=== PATIENT | male | born 2005 | race Caucasian/White ===

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

== ENCOUNTER 2024-01-23 11:27 | Emergency (ER) | payer SELFPAY ==
[2024-01-23 11:28] VITALS: BP 125/85; PULSE 85; RESP 16; TEMP 36.7; O2SAT 100; BMI 23.7
--- NOTE | 2024-01-23 11:30 | HMH.EDGENADL ---
Discharge Plan Disposition Patient Disposition: Home, Self-Care Condition: Good Prescriptions Prescriptions: No Action No Known Home Medications Referrals Follow up/Referrals: Provider,Referral, MD [Referring] - See instructions Activity Restrictions/Add. Instructions Additional Instructions/Restrictions: Please use the drops provided (Gentamicin) 0.3% solution 2 drops six times per day for 5 days. Please monitor for any worsening swelling around your eye, worsening vision, worsening pain, or any other new or worsening symptoms and return to the emergency department if you develop such symptoms. Please do not use your contacts until your eye recovers. Please use Tylenol and ibuprofen as needed for your pain. Clinical Impressions Clinical Impression: Corneal abrasion Qualifiers: Encounter type: initial encounter Laterality: right Qualified Code(s): S05.01XA - Injury of conjunctiva and corneal abrasion without foreign body, right eye, initial encounter Instructions Patient Instructions: DI for Eye Pain Discharge ED Provider: Esteban Alford Adult HPI General Chief complaint: Eye Problems Stated complaint: Left eye red, swollen, irritation Time Seen by Provider: 01/23/24 11:30 History of Present Illness HPI narrative: The patient presents with a chief complaint of eye discomfort that began last night, characterized initially by pain and itching. He noticed redness in the affected eye following these symptoms. The patient was wearing contact lenses at the time the symptoms started, which are not specified as either daily or monthly disposables. He denies any medical conditions, daily medications, allergies to medications, or surgical history. The patient reports no incidents of foreign objects entering the eye or any unusual exposure that could have led to the symptoms. He also experiences light sensitivity in the affected eye, which is a new symptom for him, although he recalls a similar episode in the past. The patient does not report any daily medications or pertinent past medical history that could contribute to the current eye condition. Please note that above description of symptoms, in this electronic medical record under categorization of recalled from ER triage doctor by RN are reflective of an initial nursing assessment, however, is not reflective of my full history and physical exam that was personally taken and clarified. Consequentially, this preceding description of symptoms, which may include the patient's categorized chief complaint in the EMR, do not reflect my personal clinical impression, and the ultimate description of history of present illness and patient stated complaints should be deferred to this section of the note. Unless stated otherwise or congruent with this section of the note, additional signs, symptoms, or incongruence should be interpreted as inaccurate with my clinical impression. Related Data Home Medications Medication Instructions Recorded Confirmed No Known Home Medications 09/02/22 09/02/22 Allergies Allergy/AdvReac Type Severity Reaction Status Date / Time No Known Allergies Allergy Verified 09/02/22 20:51 [facility] Disclaimer: The information contained in this section may have been updated after the patient was seen, as this information can be updated by other users. Social History (Updated 05/06/23 @ 20:11 by Brandie Watts DO) Smoking Status: Never smoker alcohol intake: never current occupational status: employed Travel in the last 8 weeks: None ROS Obtained: Yes other As per HPI Physical Exam General General appearance: alert and in no apparent distress Head Head exam: atraumatic and normocephalic Eye Eye exam: Present normal appearance Neck Neck exam: Present normal inspection Chest Chest inspection: Present normal inspection and symmetric chest wall rise Respiratory Respiratory exam: Present normal lung sounds bilaterally; Absent respiratory distress Cardiovascular Cardiovascular exam: Present regular rate and normal rhythm Abdominal Exam Abdominal exam: Present soft Neurological Exam Neurological exam: Present alert and oriented X3 Psychiatric Psychiatric exam: Present normal affect and normal mood Skin Skin exam: Present warm and dry Other Other exam information: L periorbital edema, erythema, conjunctival injection, IOP WNL bilaterally. On flourescein stain, evidence of corneal abrasion with no kathleen sign, foreign body, dendritic lesions Medical Decision Making Medical Records Medical records reviewed: Yes I reviewed the patient's medical records. Jeanmarie Inquiry Pt receiving controlled substance: No Vital Signs: 01/23/24 11:28 01/23/24 11:59 Temperature 98.1 F 98.1 F Temperature Source Oral Oral Pulse Rate 73 Pulse Rate [Right] 85 Respiratory Rate 16 18 Blood Pressure 130/77 Blood Pressure [Right Arm] 125/85 Blood Pressure Mean [Right Arm] 98 Blood Pressure Source [Right Arm] Automatic Cuff 02 Sat by Pulse Oximetry 100 Oxygen Delivery Method Room Air Room Air Orders (Tests/Meds): ED MEDICATIONS Discontinued Medications Generic Name Dose Route Start Last Admin Trade Name Freq PRN Reason Stop Dose Admin Fluorescein Sodium 1 mg 01/23/24 11:59 01/23/24 12:01 Fluorescein Sodium 1mg Strip OP 01/23/24 12:00 1 mg ONCE ONE Administration Gentamicin Sulfate 0 ml 01/23/24 11:58 Gentamicin 0.3% Opth Misty 5ml OP 01/23/24 11:59 ONCE ONE Tetracaine HCl 0 ml 01/23/24 11:58 01/23/24 12:00 Tetracaine 0.5% Opth Misty 15ml OP 01/23/24 11:59 1 ml ONCE ONE Administration Medical Decision Narrative: Patient with history and exam per above presenting for evaluation of L eye pain Diagnoses considered include conjunctivitis, cellulitis, abrasion, no clinical evidence of FB, and visual acuity WNL bilaterally My clinical impression at this time is most consistent with small corneal abrasion in the setting of contacts use. I discussed my clinical impression with patient and answered all questions. At this time, the evidence for any other entities in the differential is insufficient to warrant any further testing or ED observation. This was explained to the patient. The patient was advised that persistent or worsening symptoms require further evaluation. I confirmed the patient's understanding of this discussion. Critical Care Critical Care Time Critical Care Time: No
[2024-01-23 11:59] VITALS: BP 130/77; PULSE 73; RESP 18; TEMP 36.7; O2SAT 97
[2024-01-23] MEDS: TETRACAINE 0.5% OPTH SOL 15ML OP (12:00)
[2024-01-23] MEDS: FLUORESCEIN SODIUM 1MG STRIP 1 MG OP (12:01)
== END 2024-01-23 12:01 | disposition home or self-care (01) ==
PROVIDERS: Emergency Provider Emergency Medicine; PCP Nurse Practitioner Family
DX: S05.01XA Injury of conjunctiva and corneal abrasion without foreign body, right eye, initial encounter (principal); X58.XXXA Exposure to other specified factors, initial encounter; H53.142 Visual discomfort, left eye
CPT/HCPCS: 99283

== ENCOUNTER 2024-11-23 08:12 | Outpatient (CLI) | payer SELFPAY ==
[2024-11-23 08:31] LABS: Basophils % 0.8 % (0.1-2.0); Eosinophils # 0.1 K/mm3 (0.0-0.4); Eosinophils % 2.9 % (0.1-12.0); Hematocrit 44.9 % (42.0-52.0); Hemoglobin 15.6 g/dL (14.1-18.0); Lymphocytes # 1.4 K/mm3 (0.7-4.5); Lymphocytes % 37.4 % (10-50); Mean Corpuscular HGB Conc 34.7 g/dL (31.8-35.4); Mean Corpuscular Hemoglobin 30.3 pg (27.0-31.2); Mean Corpuscular Volume 87.2 fl (80-94); Mean Platelet Volume 10.1 fl (7.4-10.4); Monocytes # 0.3 K/mm3 (0.1-1.0); Monocytes % 8.4 % (1.7-9.3); Neutrophils # 1.9 K/mm3 (1.8-7.8); Neutrophils % 50.2 % (37.0-80.0); Platelet Count 180 K/mm3 (142-424); Red Blood Count 5.15 M/mm3 (4.60-6.20); Red Cell Distribution Width 12.6 % (11.5-17.5); White Blood Count 3.8 K/mm3 (4.5-13.0)
[2024-11-23 09:16] LABS: Hemoglobin A1C 4.9 % (4.0-6.0)
[2024-11-23 09:29] LABS: Alanine Aminotransferase 23 U/L (12-78); Albumin Level 4.5 g/dl (3.5-5.0); Albumin/Globulin Ratio 1.7 (1.1-1.8); Alkaline Phosphatase 73 U/L (38-126); Anion Gap 11.1 mEq/L (5-15); Aspartate Amino Transferase 22 U/L (17-59); Bilirubin,Total 1.4 mg/dl (0.2-1.3); Blood Urea Nitrogen 19 mg/dl (9-20); Calcium 9.7 mg/dl (8.4-10.2); Carbon Dioxide 29 mmol/L (22.0-30.0); Chloride 103 mmol/L (98-107); Chol/HDL Ratio 3.9 (1-3.5); Cholesterol 149 mg/dl (140-200); Estimated Glomerular Filt Rate 95 ml/min (>60); GFR (African American) 115 ML/MIN (>60); Globulin 2.7 g/dL (1.3-3.2); Glucose 92 mg/dl (74-100); HDL Cholesterol 38 mg/dl (40-60); Potassium 4.1 mmoL/L (3.5-5.1); Sodium 139 mmol/L (136-145); Total Protein,Serum 7.2 g/dl (6.3-8.2); Triglycerides 54 mg/dl (30-150); VLDL Cholesterol 11 mg/dL (0-40)
[2024-11-23 09:41] LABS: Direct LDL Cholesterol 86.63 mg/dL (100-129)
[2024-11-23 09:47] LABS: Free T4 (Free Thyroxine) 1.33 ng/dl (0.78-2.19)
[2024-11-23 10:18] LABS: Vitamin B12 313 pg/mL (239-931)
[2024-11-23 10:37] LABS: Folate 8.05 ng/mL
[2024-11-24 11:09] LABS: Insulin Level Total 6.9 uIU/mL (2.6-24.9)
[2024-11-24 16:19] LABS: Cortisol,AM 7.4 ug/dL (6.2-19.4)
== END 2024-11-23 23:59 | disposition home or self-care (01) ==
LOC: LAB 08:14
PROVIDERS: PCP Nurse Practitioner Family; Visit Provider Nurse Practitioner Family
DX: E16.2 Hypoglycemia, unspecified (principal); R42 Dizziness and giddiness
CPT/HCPCS: 36415; 80053; 80061; 82533; 82607; 82746; 82787; 83036; 83525; 83735; 84439; 84443; 85025

== ENCOUNTER 2025-04-13 16:28 | Emergency (ER) | payer BC, SELFPAY ==
[2025-04-13 16:38] VITALS: BP 144/82; PULSE 98; RESP 20; TEMP 37.6; O2SAT 96; BMI 25.0
[2025-04-13 16:47] LABS: Coronavirus 19, PCR Not Detected (NotDetected); Influenza A, PCR Not Detected (NotDetected); Influenza B, PCR Not Detected (NotDetected)
--- OUTSIDE RECORDS SUMMARY | 2025-04-13 16:54 | XMS_ITS | Encounter Summary ---
Author Organization Healthcare Address [address] [place] [address] Care Team Providers Care Metalizing Machine Operator Name Role Phone Citlaly Caterina Primary Care Provider [phone] Encounter Details Date Type Department Care Team (Late st Contact Info) Description 11/16/2021 Community [facility] [address] [place] [address] Dorothea Fofana MD [address] [place] [address] Syncope and collapse (Primary Dx) Social History Tobacco Use Types Packs/Day Years Used Date Smoking Tobacco: Never Smokeless Tobacco: Never Alcohol Use Standard Drinks/Week Comments Never 0 (1 standard drink = 0.6 oz pure alcohol) Alcoholic Drinks/day: Never Drank Alcohol PHQ-2 Answer Date Recorded Patient Health Questionnaire-2 Score 0 11/15/2021 Sex and Gender Information Value Date Recorded Sex Assigned at Not on file Legal Sex Male 8:24 PM EDT Gender Identity Not on file Sexual Orientation Not on file COVID-19 Exposure Response Date Recorded In the last month, have you been in contact with someone who was confirmed or suspected to have Coronavirus / COVID-19? No / Unsure 11/15/2021 3:16 PM EDT documented as of this encounter Plan of Treatment Not on file documented as of this encounter Visit Diagnoses Diagnosis Syncope and collapse- Primary documented in this encounter Care Teams Metalizing Machine Operator Relationship Specialty Start Date End Date TrinyphillipCaterina [address] [place] [address] PCP - General Family Medicine 10/17/21 documented as of this encounter
--- OUTSIDE RECORDS SUMMARY | 2025-04-13 16:54 | XMS_ITS | Clinical Summary ---
Author Organization [facility] Address [address] [place] [address] Phone Care Team Providers Care Windows Software Engineer Name Role Phone Unavailable Primary Care Provider Unavailabl e Allergies No known active allergies Medications No known medications Social History Tobacco Use Types Packs/Day Years Used Date Smoking Tobacco: Never Smokeless Tobacco: Never Sex and Gender Information Value Date Recorded Sex Assigned at Not on file Legal Sex Male 9:14 PM EST Gender Identity Not on file Sexual Orientation Not on file Obstetrics History Last Filed Vital Signs Vital Sign Reading Time Taken Comments Blood Pressure 136/81 08/11/2021 9:49 PM EST Pulse 98 08/11/2021 9:49 PM EST Temperature 37.5 C (99.5 F) 08/11/2021 9:49 PM EST Respiratory Rate 16 08/11/2021 9:49 PM EST Oxygen Saturation 100% 08/11/2021 9:49 PM EST Inhaled Oxygen Concentration - - Weight 68 kg (150 lb) 08/11/2021 9:49 PM EST Height 190.5 cm (6' 3 ) 08/11/2021 9:49 PM EST Body Mass Index 18.75 08/11/2021 9:49 PM EST Plan of Treatment Health Maintenance Due Date Last Done Comments Annual Wellness Exam 10/26/2007 Meningococcal B Vaccine (2 of 2 - Bexsero SCDM 2-dose series) 11/23/2021 05/25/2021 COVID-19 Vaccine ( season) 2024 Influenza Vaccine (#1) 2025 7, 07/21/2015, 07/21/2015 DTaP/TDaP/Td (7 - Td or Tdap) 04/11/2026 04/11/2016, 11/12/2008, 02/06/2006, Additional history exists Hepatitis B Vaccine Completed 05/09/2005, 03/02/2005, 2004 Pneumococcal Vaccine 0-49 Aged Out 2005, 05/09/2005, 03/02/2005, Additional history exists No longer eligible based on patient's age to complete this topic HPV Completed 04/24/2018, 04/11/2016 Insurance [facility] [place] [address] [facility] POS [facility] [place] [address] [employer] POS
--- OUTSIDE RECORDS SUMMARY | 2025-04-13 16:54 | XMS_ITS | Clinical Summary ---
Author Organization Healthcare Address [address] [place] [address] Care Team Providers Care Magnet Placer Name Role Phone Caterina Boucher Primary Care Provider [phone] Allergies No known active allergies Medications Blood Glucose Monitoring Suppl (Accu-Chek Guide Me) w/Device kit Use to check BG 2-3 times daily 1 kit 05/10/2022 Active Active Problems Problem Noted Date Diagnosed Date Syncope and collapse 11/12/2021 Heel pain 05/10/2018 Sever's apophysitis 05/10/2018 Immunizations Immunization Administration Dates Next Due DTaP 02/06/2006 DTaP / Hep B / IPV 05/09/2005,03/02/2005, 005 DTaP / IPV 11/12/2008 HPV 9-Valent 04/24/2018,04/11/2016 Hep A, ped/adol, 2 dose 06/18/2007,11/02/2006 Hib (PRP-OMP) 11/08/2005,03/02/2005,2004 Influenza, injectable, quadrivalent 07/28/2017 Influenza, injectable, quadr ivalent, preservative free 07/21/2015 MMR 11/12/2008,02/06/2006 Meningococcal B, Omv 05/25/2021 Meningococcal MCV4O 04/11/2016 Meningococcal MCV4P 05/25/2021,04/11/2016 Pneumococcal conjugate vacci ne, 10 valent 11/08/2005,05/09/2005,03/02/2005,12/31 Tdap 04/11/2016 Varicella 11/12/2008,11/08/2005 Family History Medical History Relation Name Comments Cardiac disorder Father Depression Father Hypertension Father PTSD Father pre-diabetes Father Thyroid disease Paternal Grandfather Diabetes type II Paternal Grandmother Relation Name Status Comments Father Paternal Grandfather Paternal Grandmother Social History Tobacco Use Types Packs/Day Years Used Date Smoking Tobacco: Never Smokeless Tobacco: Never Tobacco Cessation:Counseling Given: Not Answered Alcohol Use Standard Drinks/Week Comments Never 0 (1 standard drink = 0.6 oz pure alcohol) Alcoholic Drinks/day: Never Drank Alcohol PHQ-2 Answer Date Recorded Patient Health Questionnaire-2 Score 0 11/15/2021 Sex and Gender Information Value Date Recorded Sex Assigned at Not on file Legal Sex Male 8:24 PM EDT Gender Identity Not on file Sexual Orientation Not on file Last Filed Vital Signs Vital Sign Reading Time Taken Comments Blood Pressure 117/69 05/09/2022 8:25 AM EDT Pulse 66 05/09/2022 8:25 AM EDT Temperature 37.1 C (98.8 F) 10/17/2021 12:48 PM EST Respiratory Rate 18 11/12/2021 2:17 PM EDT Oxygen Saturation 97% 10/17/2021 12:48 PM EST Inhaled Oxygen Concentration - - Weight 79.6 kg (175 lb 7.8 oz) 05/09/2022 8:25 A M EDT Height 186.8 cm (6' 1.54 ) 05/09/2022 8:25 AM ED T Body Mass Index 22.81 05/09/2022 8:25 AM EDT Plan of Treatment Health Maintenance Due Date Last Done Comments [facility]-HIV Screening 2004 [facility]-Hepatitis C Screening 2004 [facility]-/Child/Adol SDOH Screenings 2004 [facility]- SDOH Screenings 2022 [facility]-Adult SDOH Screenings 2022 [facility]-Depression Screening 11/15/2022 11/15/2021 [id number] Vaccine ( season) 2024 [facility]-Influenza Vaccine (#1) 2025 07/28/2017, [facility]-DTaP,Tdap,and Td Vaccines (7 - Td or Tdap) 04/11/2026 04/11/2016, 11/12/2008, 02/06/2006, Additional history exists [facility]-Zoster Vaccines (1 of 2) 2054 11/12/2008, 11/08/2005 [facility]-Hepatitis B Vaccines Completed 005, 03/02/2005, 2004 [facility]-HIB Vaccines Completed 11/08/2005, , 2004 [facility]-Hepatitis A Vaccines Completed 06/18/2007, 10/19 [facility]-IPV Vaccines Completed 11/12/2008, , 03/02/2005, Additional history exists [facility]-Varicella Vaccines Completed 11/12/2008, 2005 HPV Vaccines Completed 04/24/2018, 04/11/2016 [facility]-Pneumococcal Vaccine: Pediatrics (0 to 5 Years) and At-Risk Patients (6 to 49 Years) Aged Out No longer eligible based on patient's age to complete this topic [facility]-Rotavirus Vaccines Aged Out No lo nger eligible based on patient's age to complete this topic Insurance [facility] MEDICINE [facility] MEDICAID Care Teams Magnet Placer Relationship Specialty Start Date End Date Caterina Boucher [address] [place] [id number] PCP - General Family Medicine 10/17/21
[2025-04-13 17:01] VITALS: BP 128/77; PULSE 85; O2SAT 97
[2025-04-13 17:30] VITALS: BP 128/76; PULSE 82; O2SAT 97
--- NOTE | 2025-04-13 17:47 | PC.NURSE ---
Patient was updated that his flu and covid swab came back negative Per Dr. Adler. He was also made aware that the strep swab will be back in 10 to 15 minutes and that the doctor will be in to see him soon.
[2025-04-13] MEDS: IBUPROFEN 400 MG TABLET 800 MG PO (18:21)
[2025-04-13] MEDS: ACETAMINOPHEN 500MG TAB 1000 MG PO (18:21)
[2025-04-13 18:29] LABS: Strep Scrn Group A (Rapid) Negative (Negative)
--- NOTE | 2025-04-13 18:39 | ED_ITS ---
Discharge Plan Disposition Patient Disposition: Home, Self-Care Prescriptions Prescriptions: No Action No Known Home Medications Referrals Follow up/Referrals: Carlos Dang APRN [Primary Care Provider, Medical] - See instructions Activity Restrictions/Add. Instructions Additional Instructions/Restrictions: Your headaches body aches and chills are consistent with a viral syndrome. Your exam is unremarkable. COVID flu strep are all negative. As discussed there is some diagnostic uncertainty but is extremely unlikely at the moment you have a serious bacterial infection namely meningitis etc. If you have any significant worsening of her symptoms such as high fever worsening headache neurologic symptoms changes in mental status or other concerns please return to the emergency department. Maintain adequate hydration and take 80 mg of ibuprofen and 1000 mg of Tylenol 3 times a day as needed for your symptoms as discussed. Clinical Impressions Clinical Impression: Viral syndrome Print Language Print Language: Tunisian Discharge ED Provider: Isabella Adler General Adult HPI General Chief complaint: Headache Stated complaint: Headache/Fever since 8- Time Seen by Provider: 04/13/25 17:10 Mode of Arrival: Ambulatory Source of Information: Patient Description of Symptoms (Recalled from ER Triage Doc. by RN): pt is here for headache and fevers since and feels like he has been hit by a lance truck, pt is alox4 denies any nv/d, had a possible flu exposure History of Present Illness HPI narrative: 19-year-old male presented today with several days of headache and fevers and bodyaches. Has been taking some [id number] medications significant improvement. Denies any neck stiffness photophobia denies any cough sore throat runny nose ear pain etc. No significant past medical history. 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 Related Data Home Medications ?Medication ?Instructions ?Recorded ?Confirmed No Known Home Medications 09/02/2208/21 Allergies Allergy/AdvReac Type Severity Reaction Status Date / Time No Known Allergies Allergy Verified 09/02/22 20:51 [facility] Disclaimer: The information contained in this section may have been updated after the patient was seen, as this information can be updated by other users. Social History (Updated 05/06/23 @ 20:11 by Brandie Watts DO) Smoking Status: Never smoker alcohol intake: never current occupational status: employed Travel in the last 8 weeks?: None Have you lived/traveled outside [place] in past 30 days?: No Contact w/someone who lives/traveled outside US past 30 days?: No Exposure to someone with infectious disease in past 14 days?: No Do you have a fever (greater than 100.4 F or 38 C)?: No Have you tested positive for COVID-19?: No Exposed to someone with COVID-19 in past 14 days?: No Do you have a sore throat?: No Do you have a cough?: No Do you have any weakness?: No Do you have any diarrhea?: No Are you experiencing any unusual bleeding?: No Do you have any muscle aches/pain?: No Do you have any abdominal pain?: No Are you experiencing loss of taste or smell?: No ROS Obtained: Yes All systems reviewed & no additional complaints except as documented Physical Exam General General appearance: alert and in no apparent distress ENT ENT exam: Present normal exam, normal oropharynx and TM's normal bilaterally Neck Neck exam: Present full ROM; Absent meningismus Respiratory Respiratory exam: Present normal lung sounds bilaterally; Absent respiratory distress Cardiovascular Cardiovascular exam: Present regular rate and normal rhythm Neurological Exam Neurological exam: Present alert, oriented X3, CN II-XII intact and normal gait; Absent motor sensory deficit Medical Decision Making Medical Records Screening: Per USPSTF and CDC recommendations, given the prevalence of disease in our region, it is our hospital?s policy to screen for HIV and viral Hepatitis for all patients aged 18 and over and those with ongoing risk factors. Jeanmarie Inquiry Pt receiving controlled substance: No Vital Signs: 04/13/25 16:38 04/13/25 17:01 04/13/25 17:30 Temperature 99.7 F H Temperature Source Oral Pulse Rate 85 82 Pulse Rate [Left Radial] 98 H Respiratory Rate 20 Blood Pressure 128/77 128/76 Blood Pressure [Right Arm] 144/82 H Blood Pressure Mean [Right Arm] 102 02 Sat by Pulse Oximetry 96 97 97 Oxygen Delivery Method Room Air Lab Data Lab Results 04/13/25 16:39: SARS-CoV-2 (PCR) Not detected, Influenza A Untype (PCR) Not detected, Influenza Type B (PCR) Not detected 04/13/25 17:41: Group A Strep Rapid Negative Orders (Tests/Meds): ED MEDICATIONS Discontinued Medications Generic Name Dose Route Start Last Admin Trade Name Freq PRN Reason Stop Dose Admin Acetaminophen 1,000 mg 04/13/25 17:33 04/13/25 18:21 Acetaminophen 500mg Tab PO 04/13/25 17:34 1,000 mg ONCE ONE Administration Ibuprofen 800 mg 04/13/25 17:33 04/13/25 18:21 Ibuprofen 400 Mg Tablet PO 04/13/25 17:34 800 mg ONCE ONE Administration ORDERS Category Date Time Status Rapid PCR Covid and Flu A/B Stat Lab 04/13/25 16:39 Completed Strep Scrn Group A (Rapid) Stat Lab 04/13/25 17:41 Completed Strep Screen Confirmation Stat Micro 04/13/25 17:41 Received Medical Decision Narrative: 19-year-old with above history and physical very well-appearing on my exam with no focal abnormalities. Specifically he has no meningismus or concern at the moment for bacterial meningitis. It is possible he has a viral meningitis but most likely has a viral syndrome ongoing at the moment. He is been advised to take Tylenol and ibuprofen for supportive care. No indication for any labs CT imaging lumbar puncture at the moment but return precautions strictly discussed that there is some diagnostic uncertainty with negative COVID flu and strep test. No indication for determine the exact etiology of this at the moment without any significant comorbidities he is not a candidate for antiviral therapy. Patient and the patient's father at the bedside understand to return with any significant worsening of symptoms. Critical Care Critical Care Time Critical Care Time: No
[2025-04-13 18:45] VITALS: BP 121/68; PULSE 73; RESP 20; TEMP 36.7; O2SAT 97
== END 2025-04-13 18:47 | disposition home or self-care (01) ==
PROVIDERS: Emergency Provider Student in an Organized Health Care Education/Training Program; PCP Nurse Practitioner Family
DX: R51.9 Headache, unspecified (principal); R50.9 Fever, unspecified; B34.9 Viral infection, unspecified
CPT/HCPCS: 87430; 87636; 99283